=== PATIENT | female | born 1965 | race Caucasian/White ===

== ENCOUNTER 2020-10-15 05:30 | Day surgery (SDC) | payer MEDICAID ==
[2020-10-07 15:48] LABS: BASOPHILS # (AUTO) 0.1 X10'3 (0-0.2); BASOPHILS % (AUTO) 0.7 % (0-1); EOSINOPHILS # (AUTO) 0.2 X10'3 (0-0.9); EOSINOPHILS % (AUTO) 1.6 % (0-6); LYMPHOCYTES # (AUTO) 4.5 X10'3 (1.1-4.8); LYMPHOCYTES % (AUTO) 32.3 % (21-51); MEAN CORPUSCULAR HEMOGLOBIN 28.6 PG (27.0-31.0); MEAN CORPUSCULAR HGB CONC 33.4 g/dL (33.0-36.5); MEAN CORPUSCULAR VOLUME 85.6 FL (78-98); MEAN PLATELET VOLUME 9.6 FL (7.4-10.4); MONOCYTES # (AUTO) 0.7 X10'3 (0-0.9); MONOCYTES % (AUTO) 4.8 % (2-12); NEUTROPHILS # (AUTO) 8.4 X10'3 (1.8-7.7); NEUTROPHILS % (AUTO) 60.6 % (42-75); PRE OP HEMATOCRIT 38.4 % (35.0-45.0); PRE OP HEMOGLOBIN 12.8 g/dL (12.0-16.0); PRE OP PLATELET COUNT 294 X10'3 (140-440); RED BLOOD COUNT 4.49 X10'6 (4.20-5.60); RED CELL DISTRIBUTION WIDTH 14.1 % (11.5-14.5)
[2020-10-07 16:03] LABS: ALBUMIN 3.6 G/DL (3.4-5.0); ALBUMIN/GLOBULIN RATIO 0.9 (1.1-1.5); ALKALINE PHOSPHATASE 110 IU/L (46-116); BLOOD UREA NITROGEN 10 MG/DL (7-18); BUN/CREATININE RATIO 15.6 (6.6-38.0); CALCIUM 9.1 MG/DL (8.5-10.1); CHLORIDE 101 MMOL/L (99-107); CREATININE 0.64 MG/DL (0.40-0.90); PRE OP ALT 20 U/L (30-65); PRE OP ANION GAP 7 (8-16); PRE OP AST 14 U/L (10-37); PRE OP BILIRUB, TOTAL 0.4 MG/DL (0.0-1.0); PRE OP GLUCOSE 150 MG/DL (70-104); PRE OP POTASSIUM 3.8 MMOL/L (3.4-5.1); PRE OP SODIUM 140 MMOL/L (135-145); TOTAL CARBON DIOXIDE 31.6 MMOL/L (24-32); TOTAL PROTEIN 7.6 G/DL (6.4-8.2); eGFR > 90 ML/MIN
[~2020-10-15] VITALS: Ht 160 cm; Wt 108.4 kg
[2020-10-15] VITALS (8 sets, daily range): BP systolic 122–149; BP diastolic 68–92
[~2020-10-15 05:30] MED LIST: ALBU18HF2 INH; CARB1TAB38 PO; CYCL-1 PO; HYDR-4353 PO; LANTUS SQ; LISI-790 PO; PIOG15TA67 PO; SERT-432 PO; albuterol 2.5 MG/3 ML nebule NEB ONE; clindamycin-Cleocin 900mg/D5W 50 ML IV ONE; famotidine 20mg tablet PO ONE; ringers solution, lacted 1,000 ML IV SCH; vancomycin 1,500 MG in NS 300ml IV soln IV ONE
[2020-10-15] MEDS ORDERED: BUPIVAcaine/PF 2.5 mg/ml (0.25%) 30ml vial ONE (06:52)
[2020-10-15] MEDS ORDERED: triamcinolone acetonide 40mg/ml inj ONE (06:57)
[2020-10-15] MEDS ORDERED: sevoflurane 250ml liquid IH ONE (07:12)
[2020-10-15] MEDS ORDERED: dexamethasone sod phosphate 10mg/ml inj ONE (07:12)
[2020-10-15] MEDS ORDERED: ondansetron/PF 4mg/2ml inj ONE (07:12)
[2020-10-15] MEDS ORDERED: midazolam 1 mg/ML 2ml injection ONE (07:21)
[2020-10-15] MEDS ORDERED: fentaNYL/PF 50MCG/1 ML 2ML syringe ONE (07:21)
[2020-10-15] MEDS ORDERED: LIDOcaine 2% (20mg/ml) 5ml vial ONE (07:22)
[2020-10-15] MEDS ORDERED: propofol inj 20 ML IV ONE (07:32)
[2020-10-15] MEDS ORDERED: ondansetron/PF 4mg/2ml inj IV PRN (08:25)
[2020-10-15] MEDS ORDERED: meperidine/PF 25mg/ml syringe IV PRN ×3 (08:25)
[2020-10-15] MEDS ORDERED: morphine 2 MG/ML inj. syringe IV PRN (08:25)
[2020-10-15] MEDS ORDERED: morphine 4 MG/ML inj SYRINge IV PRN (08:25)
[2020-10-15] MEDS ORDERED: proCHLORperazine 10 MG/2 ml inj IV PRN (08:25)
[2020-10-15] MEDS ORDERED: ringers solution, lacted 1,000 ML IV SCH (08:25)
--- NOTE | 2020-10-15 08:25 | NUR ---
ADMITTED TO PACU FROM OR ACCOMPANIED BY ANESTHESIA. INTIAL PHYSICAL ASSESSMENT DONE AND RECORDED. REPORT RECEIVED FROM ANESTHESIA.
--- NOTE | 2020-10-15 09:30 | NUR ---
DISCHARGE CRITERIA MET, DISCHARGE INSTRUCTIONS GIVEN, DEMONSTRATES VERBAL UNDERSTANDING. DISCHARGED HOME IN GOOD CONDITION.
== END 2020-10-15 09:25 | disposition home or self-care (01) ==
LOC: PAS 05:30
PROVIDERS: ATTEND Orthopaedic Surgery
DX: S83.281A Other tear of lateral meniscus, current injury, right knee, initial encounter (principal); S83.231A Complex tear of medial meniscus, current injury, right knee, initial encounter; M94.261 Chondromalacia, right knee; G89.4 Chronic pain syndrome; I10 Essential (primary) hypertension; K21.9 Gastro-esophageal reflux disease without esophagitis; E66.01 Morbid (severe) obesity due to excess calories; Z68.41 Body mass index [BMI] 40.0-44.9, adult; M17.0 Bilateral primary osteoarthritis of knee; E11.42 Type 2 diabetes mellitus with diabetic polyneuropathy; E11.59 Type 2 diabetes mellitus with other circulatory complications; J45.909 Unspecified asthma, uncomplicated; F32.9 Major depressive disorder, single episode, unspecified; G43.909 Migraine, unspecified, not intractable, without status migrainosus; Z20.822 Contact with and (suspected) exposure to COVID-19; Z79.899 Other long term (current) drug therapy; Z79.4 Long term (current) use of insulin; Z86.31 Personal history of diabetic foot ulcer; Z88.2 Allergy status to sulfonamides; Z88.5 Allergy status to narcotic agent; Z88.8 Allergy status to other drugs, medicaments and biological substances; Z88.0 Allergy status to penicillin; Z98.890 Other specified postprocedural states; Z90.710 Acquired absence of both cervix and uterus; Z90.49 Acquired absence of other specified parts of digestive tract; Z87.891 Personal history of nicotine dependence; X58.XXXA Exposure to other specified factors, initial encounter; Y93.89 Activity, other specified; Y92.89 Other specified places as the place of occurrence of the external cause; Y99.8 Other external cause status
CPT/HCPCS: 29873; 29879; 29880; 36415; 80053; 82948; 85025; 93005; J1100; J2001; J2250; J2405; J2704; J3010; J3301; J3370; J3490; J7040; U0003; U0005; A4215; A4618; A6250; A6449; A7000; J7120